=== PATIENT | female | born 1970 | race Caucasian/White ===

== ENCOUNTER 2023-05-09 07:12 | Day surgery (SDC) | payer BC ==
[~2023-05-09] VITALS: Ht 165.1 cm; Wt 61.2 kg
[2023-05-09 08:00] VITALS: O2SAT 100
[2023-05-09] MEDS ORDERED: SIMETHICONE 40 MG/0.6 ML ML ONE (08:30)
[2023-05-09] MEDS ORDERED: fentaNYL CITRATE/PF 100 MCG/2 ML AMP ONE (08:31)
[2023-05-09] MEDS ORDERED: MIDAZOLAM HCL 5 MG/5 ML VIAL ONE (08:31)
[2023-05-09 14:03] VITALS: BP_SYST 104; PULSE 76; RESP 18
== END 2023-05-09 10:15 | disposition home or self-care (01) ==
LOC: SDS 07:12 → SMU 07:16 → EDSEX 09:00 → SDS 10:15
PROVIDERS: ATTEND Internal Medicine
DX: Z12.11 Encounter for screening for malignant neoplasm of colon (principal); K64.8 Other hemorrhoids
CPT/HCPCS: 45378; 99152; G0378; J2250; J3010